=== PATIENT | male | born 1945 | race Caucasian/White ===

== ENCOUNTER 2021-06-25 16:58 | Outpatient (CLI) | payer OTHER ==
--- NOTE | 2021-06-25 18:12 | Ultrasound Report ---
PROCEDURE: Duplex Ext Veins Left INDICATIONS: LEFT LEG SWELLING TECHNIQUE: Real-time imaging, as well as color and pulse Doppler interrogation, were performed of the lower extr emity deep veins from the inguinal ligament to the popliteal fossa. COMPARISON: None. FINDINGS: Extensive deep venous thrombosis in the left leg from the femoral vein to the popliteal vei n. The common femoral vein is patent. Deep vein thrombosis is occlusive at multiple segments in the l eft lower extremity. IMPRESSION: Occlusive deep venous thrombosis in the left leg from the femoral vein to the popliteal vein. Reviewed by: Thierry Bautista on 06/25/2021 6:11 PM PDT Approved by: Thierry Bautista on 06/25/2021 6:11 PM PDT Station ID: [id number]
== END 2021-06-25 16:59 | disposition home or self-care (01) ==
LOC: DI 16:58
PROVIDERS: ATTEND Physician Assistant
DX: I82.412 Acute embolism and thrombosis of left femoral vein (principal)